=== PATIENT | female | born 1995 | race Caucasian/White ===

== ENCOUNTER 2019-04-26 14:58 | Emergency (ER) | payer MEDICAID ==
[~2019-04-26] VITALS: Ht 160 cm; Wt 58.2 kg
[~2019-04-26 14:58] MED LIST: ALBU8.5H8 INH; IBUP-1222 PO
--- NOTE | 2019-04-26 15:27 | NUR ---
TO ROOM FROM LOBBY. NAD.
[2019-04-26] MEDS ORDERED: ONDANSETRON ODT 4 MG ONE (15:53)
[2019-04-26] MEDS ORDERED: ONDANSETRON ODT 4 MG PO ONE (16:00)
--- NOTE | 2019-04-26 16:18 | NUR ---
Patient drank 200mL sprite without vomiting, reports improvement in symptoms.
--- NOTE | 2019-04-26 17:18 | NUR ---
Lacer splint applied to right wrist, patient tolerated well. Discharge instructions discussed with patient including when to return to emergency department, patient verbalizes understanding. Prescription provided with instruction for use, patient verbalizes understanding.
[2019-04-26 17:20] VITALS: BP 109/69
== END 2019-04-26 17:22 | disposition home or self-care (01) ==
LOC: ED 16:15
DX: R11.2 Nausea with vomiting, unspecified (principal); M25.531 Pain in right wrist
CPT/HCPCS: 29260; 73110; 99283; Q0162

== ENCOUNTER 2020-01-07 17:49 | Outpatient (CLI) | payer MEDICAID ==
[~2020-01-07] VITALS: Ht 160 cm; Wt 69.0 kg
[2020-01-07 18:45] LABS: FERNING TEST FERNING NOT PRESENT (NEGATIVE)
== END 2020-01-07 19:15 | disposition home or self-care (01) ==
LOC: LDOP 17:49
PROVIDERS: ATTEND Obstetrics & Gynecology
DX: O26.893 Other specified pregnancy related conditions, third trimester (principal); R10.9 Unspecified abdominal pain; Z3A.36 36 weeks gestation of pregnancy
CPT/HCPCS: 59025; 84112; 89060; 99211; G0463; Q0114

== ENCOUNTER 2020-01-10 07:58 | Inpatient (IN) | payer MEDICAID ==
[~2020-01-10] VITALS: Ht 160 cm; Wt 68.1 kg
[2020-01-10] MEDS ORDERED: OXYTOCIN 30U/ 0.9% NaCL 500ML 500 ML IV PRN (08:15)
[2020-01-10] MEDS ORDERED: D5%-LACTATED RINGERS 1,000 ML IV SCH (08:15)
[2020-01-10] MEDS ORDERED: OXYTOCIN 30U/ 0.9% NaCL 500ML 500 ML IV ONE (08:15)
[2020-01-10] MEDS: LACTATED RINGERS 1,000 ML IV SCH ×2 (08:28→17:27)
[2020-01-10] MEDS ORDERED: TERBUTALINE 1 MG/ML, 1ML IVPush PRN (08:30)
[2020-01-10] MEDS ORDERED: METOCLOPRAMIDE 5 MG/ML, 2ML IVPush PRN (08:30)
[2020-01-10] MEDS ORDERED: FENTANYL PF 100 MCG/2ML IVPush PRN (08:30)
[2020-01-10] MEDS ORDERED: TERBUTALINE 1 MG/ML, 1ML SQ PRN (08:30)
[2020-01-10] MEDS ORDERED: MISOPROSTOL 25 MCG TABLET VG PRN (08:30)
[2020-01-10] MEDS ORDERED: SODIUM CITRATE/CITRIC ACID 30 ML UDC PO PRN (08:30)
[2020-01-10] MEDS ORDERED: FENTANYL PF 100 MCG/2ML IV PRN (08:30)
[2020-01-10] MEDS ORDERED: NEWBORN KIT ONE (08:37)
[2020-01-10] MEDS ORDERED: OXYTOCIN 30U/ 0.9% NaCL 500ML 500 ML ONE ×2 (08:38→19:50)
[2020-01-10] MEDS ORDERED: MISOPROSTOL 25 MCG TABLET ONE ×3 (08:38→12:40)
[2020-01-10 08:50] LABS: BASOPHILS # (AUTO) 0.02 x10^3/uL (0-0.1); BASOPHILS % (AUTO) 0 % (0-1); EOSINOPHILS % (AUTO) 2 % (1-7); LYMPHOCYTES # (AUTO) 1.19 x10^3/uL (1-3.4); LYMPHOCYTES % (AUTO) 17 % (22-44); MD NO; MEAN CORPUSCULAR HEMOGLOBIN 26.5 pg (27.0-34.8); MEAN CORPUSCULAR HGB CONC 32.5 g/dL (32.4-35.8); MEAN CORPUSCULAR VOLUME 81.6 fL (80-100); MEAN PLATELET VOLUME 8.2 fL (7.4-10.4); MONOCYTES # (AUTO) 0.47 x10^3/uL (0.2-0.8); MONOCYTES % (AUTO) 7 % (2-9); NEUTROPHILS # (AUTO) 5.36 x10^3/uL (1.8-6.8); NEUTROPHILS % (AUTO) 75 % (42-75); PLATELET COUNT 201 x10^3/uL (130-400); RED BLOOD COUNT 4.32 x10^6/uL (3.82-5.3); RED CELL DISTRIBUTION WIDTH 13.5 % (9.6-15.2)
[2020-01-10 08:55] VITALS: BP 107/62
[2020-01-10] MEDS ORDERED: FLU VACC QS2019-20 36MOS UP/PF 0.5 ML IM-VACC ONE (09:30)
[2020-01-10] MEDS ORDERED: FENTANYL/BUPIV./NS/PF 250 ML EPIDCONT SCH (13:42)
[2020-01-10] MEDS ORDERED: FENTANYL PF 500 MCG, BUPIVACAINE/PF 0.5%, 30ML 62.5 ML in SODIUM CHLORIDE 0.9% 177.5 ML EPIDCONT SCH (14:00)
[2020-01-10] MEDS ORDERED: LACTATED RINGERS 1,000 ML IVBOLUS PRN (14:00)
[2020-01-10] MEDS ORDERED: FENTANYL PF 100 MCG/2ML ONE (17:22)
[2020-01-10] MEDS ORDERED: BUPIVACAINE 0.25% ONE (17:22)
[2020-01-10] MEDS ORDERED: LIDOCAINE/PF 1.5%-EPI 1:200K, 30ML ONE (17:25)
[2020-01-10] MEDS: OXYTOCIN 30U/ 0.9% NaCL 500ML 500 ML IV SCH ×5 (19:27→23:45)
[2020-01-10] MEDS ORDERED: CARBOPROST TROMETHAMINE 250 MCG/ML, 1ML IM PRN (19:30)
[2020-01-10] MEDS ORDERED: ACETAMINOPHEN 325 MG TABLET PO PRN (19:30)
[2020-01-10] MEDS ORDERED: MAGNESIUM HYDROXIDE 8%, 30ML UDC PO PRN (19:30)
[2020-01-10] MEDS ORDERED: OXYTOCIN 10 UNITS/ML, 1ML IM PRN (19:30)
[2020-01-10] MEDS ORDERED: MEASLES,MUMPS&RUBELLA VACC/PF 0.5 ML SQ-VACC PRN (19:30)
[2020-01-10] MEDS ORDERED: METHYLERGONOVINE 0.2 MG/ML IM PRN (19:30)
[2020-01-10] MEDS ORDERED: ONDANSETRON 2MG/ML, 2ML IV PRN (19:30)
[2020-01-10] MEDS ORDERED: SIMETHICONE 80 MG CHEW TAB PO PRN (19:30)
[2020-01-10] MEDS ORDERED: OXYcodone IR 5MG TABLET PO PRN (19:30)
[2020-01-10] MEDS ORDERED: IBUPROFEN 600 MG TABLET ONE (20:25)
[2020-01-10] MEDS: IBUPROFEN 600 MG TABLET PO PRN (20:28)
[2020-01-10 21:30] VITALS: BP 113/70
[2020-01-11] MEDS: OXYTOCIN 30U/ 0.9% NaCL 500ML 500 ML IV SCH ×9 (01:11→11:13)
[2020-01-11 01:30] VITALS: BP 105/69
[2020-01-11] MEDS: OXYcodone/APAP 5/325MG TABLET PO PRN ×2 (03:17→12:12)
[2020-01-11] MEDS: IBUPROFEN 600 MG TABLET PO PRN ×3 (03:17→16:01)
[2020-01-11 03:39] LABS: BASOPHILS # (AUTO) 0.03 x10^3/uL (0-0.1); BASOPHILS % (AUTO) 0 % (0-1); EOSINOPHILS # (AUTO) 0.16 x10^3/uL (0-0.4); EOSINOPHILS % (AUTO) 2 % (1-7); LYMPHOCYTES # (AUTO) 1.79 x10^3/uL (1-3.4); LYMPHOCYTES % (AUTO) 17 % (22-44); MD NO; MEAN CORPUSCULAR HEMOGLOBIN 26.8 pg (27.0-34.8); MEAN CORPUSCULAR HGB CONC 32.7 g/dL (32.4-35.8); MEAN CORPUSCULAR VOLUME 81.8 fL (80-100); MEAN PLATELET VOLUME 8.8 fL (7.4-10.4); MONOCYTES # (AUTO) 0.81 x10^3/uL (0.2-0.8); MONOCYTES % (AUTO) 8 % (2-9); NEUTROPHILS # (AUTO) 7.82 x10^3/uL (1.8-6.8); NEUTROPHILS % (AUTO) 74 % (42-75); PLATELET COUNT 201 x10^3/uL (130-400); RED BLOOD COUNT 4.09 x10^6/uL (3.82-5.3); RED CELL DISTRIBUTION WIDTH 13.1 % (9.6-15.2)
[2020-01-11 05:00] VITALS: BP 103/68
[2020-01-11 07:07] VITALS: BP 98/62
[2020-01-11] MEDS: DOCUSATE 100 MG CAPSULE PO PRN (08:55)
[2020-01-11] MEDS: PRENATAL VIT/IRON/FA 1 EACH TABLET PO SCH (08:55)
[2020-01-11 12:12] VITALS: BP 94/55
[2020-01-11] MEDS ORDERED: FLU VACC QS2019-20 36MOS UP/PF 0.5 ML IM-VACC ONE (14:00)
[2020-01-11 16:00] VITALS: BP 100/58
[2020-01-11 19:01] VITALS: BP 99/64
[2020-01-12 08:00] VITALS: BP 97/56
[2020-01-12] MEDS: DOCUSATE 100 MG CAPSULE PO PRN (08:01)
[2020-01-12] MEDS: IBUPROFEN 600 MG TABLET PO PRN ×2 (08:01→15:42)
[2020-01-12] MEDS: PRENATAL VIT/IRON/FA 1 EACH TABLET PO SCH (08:01)
[2020-01-12] MEDS: OXYcodone/APAP 5/325MG TABLET PO PRN ×2 (08:05→15:44)
[2020-01-12] MEDS ORDERED: IBUP-1222 PO (14:51)
[2020-01-12] MEDS ORDERED: OXYC-302 PO (14:52)
== END 2020-01-12 20:00 | disposition home or self-care (01) | DRG 807 ==
LOC: LDIP 07:58 → 2NW 21:33
PROVIDERS: ADMIT Obstetrics & Gynecology; ATTEND Obstetrics & Gynecology
PROC: 10E0XZZ Delivery of Products of Conception, External Approach (ICD-10-PCS; principal; 2020-01-10)
PROC: 0W8NXZZ Division of Female Perineum, External Approach (ICD-10-PCS; 2020-01-10)
PROC: 3E0R3BZ Introduction of Anesthetic Agent into Spinal Canal, Percutaneous Approach (ICD-10-PCS; 2020-01-10)
PROC: 00HU33Z Insertion of Infusion Device into Spinal Canal, Percutaneous Approach (ICD-10-PCS; 2020-01-10)
DX: O41.03X0 Oligohydramnios, third trimester, not applicable or unspecified (principal); Z37.0 Single live birth; Z3A.37 37 weeks gestation of pregnancy
CPT/HCPCS: 36415; J3490; S0020; 85025; 86592; 86850; 86900; 90686; G0378; J3010; J2590; J7050; J7120

== ENCOUNTER 2021-06-10 13:20 | Outpatient (CLI) | payer MEDICAID ==
[~2021-06-10] VITALS: Ht 160 cm; Wt 73.6 kg
[~2021-06-10 13:20] MED LIST changes: +OXYC1TAB12 PO
[2021-06-10 14:15] LABS: BASOPHILS % (AUTO) 0 % (0-1); EOSINOPHILS % (AUTO) 2 % (1-7); LYMPHOCYTES % (AUTO) 19 % (22-44); MEAN CORPUSCULAR HEMOGLOBIN 24.2 pg (27.0-34.8); MEAN CORPUSCULAR HGB CONC 33.5 g/dL (32.4-35.8); MONOCYTES % (AUTO) 8 % (2-9); NEUTROPHILS % (AUTO) 71 % (42-75); PLATELET COUNT 225 x10^3/uL (130-400); RED BLOOD COUNT 4.06 x10^6/uL (3.82-5.3); RED CELL DISTRIBUTION WIDTH 16.2 % (9.6-15.2)
[2021-06-10 14:16] VITALS: BP 117/67
[2021-06-18] MEDS ORDERED: OXYC1TAB12 PO (13:51)
== END 2021-06-10 14:42 | disposition home or self-care (01) ==
LOC: LDOP 13:20
PROVIDERS: ATTEND Obstetrics & Gynecology
DX: O26.893 Other specified pregnancy related conditions, third trimester (principal); R10.9 Unspecified abdominal pain; Z3A.38 38 weeks gestation of pregnancy
CPT/HCPCS: 36415; 59025; 84112; 85025; 86592; 86701; 86702; 86762; 86850; 86900; 87340; 87535; 87806; G0475

== ENCOUNTER 2021-06-16 02:43 | Inpatient (IN) | payer MEDICAID ==
[~2021-06-16] VITALS: Ht 160 cm; Wt 73.6 kg
[~2021-06-16 02:43] MED LIST changes: -OXYC1TAB12 PO; +OXYC1TAB14 PO
[2021-06-17 13:00] VITALS: BP 111/72
[2021-06-17] MEDS: LACTATED RINGERS 1,000 ML IV SCH ×3 (13:25→20:00)
[2021-06-17] MEDS ORDERED: OXYTOCIN 30U/ 0.9% NaCL 500ML 500 ML ONE (13:49)
[2021-06-17] MEDS ORDERED: LIDOCAINE 1%, 20ML ONE (13:49)
[2021-06-17] MEDS ORDERED: MISOPROSTOL 200 MCG TABLET ONE (13:49)
[2021-06-17] MEDS ORDERED: NEWBORN KIT ONE (13:49)
[2021-06-17] MEDS ORDERED: TERBUTALINE 1 MG/ML, 1ML SQ PRN (14:00)
[2021-06-17] MEDS ORDERED: FENTANYL PF 100 MCG/2ML IV PRN (14:00)
[2021-06-17] MEDS ORDERED: OXYTOCIN 30U/ 0.9% NaCL 500ML 500 ML IV PRN (14:00)
[2021-06-17] MEDS ORDERED: FENTANYL PF 100 MCG/2ML IVPush PRN (14:00)
[2021-06-17] MEDS ORDERED: OXYTOCIN 30U/ 0.9% NaCL 500ML 500 ML IV ONE (14:00)
[2021-06-17] MEDS ORDERED: CALCIUM CARBONATE 500 MG TAB.CHEW PO PRN ×2 (14:00→21:00)
[2021-06-17] MEDS ORDERED: ONDANSETRON 2MG/ML, 2ML IVPush PRN (14:00)
[2021-06-17] MEDS ORDERED: D5%-LACTATED RINGERS 1,000 ML IV SCH (14:00)
[2021-06-17] MEDS ORDERED: TERBUTALINE 1 MG/ML, 1ML IVPush PRN (14:00)
[2021-06-17 14:05] LABS: BASOPHILS % (AUTO) 0 % (0-1); EOSINOPHILS % (AUTO) 2 % (1-7); LYMPHOCYTES % (AUTO) 19 % (22-44); MEAN CORPUSCULAR HEMOGLOBIN 23.4 pg (27.0-34.8); MEAN CORPUSCULAR HGB CONC 32.7 g/dL (32.4-35.8); MEAN PLATELET VOLUME 8.2 fL (7.4-10.4); MONOCYTES % (AUTO) 6 % (2-9); NEUTROPHILS % (AUTO) 73 % (42-75); PLATELET COUNT 212 x10^3/uL (130-400); RED BLOOD COUNT 4.37 x10^6/uL (3.82-5.3); RED CELL DISTRIBUTION WIDTH 16.6 % (9.6-15.2)
[2021-06-17] MEDS ORDERED: BUPIVACAINE 0.25% ONE (19:17)
[2021-06-17] MEDS ORDERED: FENTANYL/BUPIV./NS/PF 250 ML EPIDCONT ONE (19:17)
[2021-06-17] MEDS ORDERED: FENTANYL/BUPIV./NS/PF 250 ML EPIDCONT SCH (20:00)
[2021-06-17] MEDS ORDERED: EPHEDRINE 50 MG/ML, 1ML IVPush PRN (20:00)
[2021-06-17] MEDS ORDERED: LACTATED RINGERS 1,000 ML IVBOLUS PRN (20:00)
[2021-06-17] MEDS ORDERED: MISOPROSTOL 200 MCG TABLET PR PRN (21:00)
[2021-06-17] MEDS ORDERED: OXYTOCIN 30U/ 0.9% NaCL 500ML 500 ML IV SCH (21:00)
[2021-06-17] MEDS ORDERED: METHYLERGONOVINE 0.2 MG/ML IM PRN (21:00)
[2021-06-17] MEDS ORDERED: OXYcodone IR 5MG TABLET PO PRN (21:00)
[2021-06-17] MEDS ORDERED: OXYTOCIN 10 UNITS/ML, 1ML IM PRN (21:00)
[2021-06-17] MEDS ORDERED: ONDANSETRON 2MG/ML, 2ML IV PRN (21:00)
[2021-06-17] MEDS ORDERED: IBUPROFEN 800 MG TABLET PO PRN (21:00)
[2021-06-17] MEDS ORDERED: TRANEXAMIC ACID 100 MG/ML, 10ML IV ONE (21:00)
[2021-06-17] MEDS ORDERED: ACETAMINOPHEN 325 MG TABLET PO PRN ×2 (21:00)
[2021-06-17] MEDS ORDERED: MAGNESIUM HYDROXIDE 8%, 30ML UDC PO PRN (21:00)
[2021-06-17] MEDS ORDERED: SIMETHICONE 80 MG CHEW TAB PO PRN (21:00)
[2021-06-17 22:50] VITALS: BP 115/73
[2021-06-17] MEDS: DOCUSATE 100 MG CAPSULE PO PRN (23:05)
[2021-06-18] MEDS: OXYcodone/APAP 5/325MG TABLET PO PRN ×3 (00:18→14:05)
[2021-06-18 03:00] VITALS: BP 103/58
[2021-06-18] MEDS: LACTATED RINGERS 1,000 ML IV SCH (04:00)
[2021-06-18 04:34] LABS: BASOPHILS % (AUTO) 1 % (0-1); EOSINOPHILS % (AUTO) 1 % (1-7); LYMPHOCYTES % (AUTO) 15 % (22-44); MEAN CORPUSCULAR HGB CONC 32.3 g/dL (32.4-35.8); MEAN PLATELET VOLUME 8.1 fL (7.4-10.4); MONOCYTES % (AUTO) 7 % (2-9); NEUTROPHILS % (AUTO) 77 % (42-75); PLATELET COUNT 190 x10^3/uL (130-400); RED BLOOD COUNT 4.03 x10^6/uL (3.82-5.3); RED CELL DISTRIBUTION WIDTH 16.4 % (9.6-15.2)
[2021-06-18 08:55] VITALS: BP 105/67
[2021-06-18] MEDS ORDERED: PRENATAL VIT/IRON/FA 1 EACH TABLET PO SCH (09:00)
[2021-06-18] MEDS: DOCUSATE 100 MG CAPSULE PO PRN (10:09)
[2021-06-18] MEDS ORDERED: IBUP-1222 PO (13:51)
[2021-06-18] MEDS ORDERED: DOCU-131 PO (13:51)
[2021-06-18] MEDS ORDERED: OXYC1TAB14 PO (13:51)
[2021-06-18] MEDS ORDERED: FERR325T5 PO (13:51)
[2021-06-18 14:11] VITALS: BP 102/66
[2021-06-18 19:23] VITALS: BP 95/56
== END 2021-06-18 22:10 | disposition home or self-care (01) | DRG 807 ==
LOC: LDIP 06-17 13:24 → 2NW 06-17 22:33
PROVIDERS: ADMIT Obstetrics & Gynecology; ATTEND Obstetrics & Gynecology
PROC: 10E0XZZ Delivery of Products of Conception, External Approach (ICD-10-PCS; principal; 2021-06-17)
PROC: 10907ZC Drainage of Amniotic Fluid, Therapeutic from Products of Conception, Via Natural or Artificial Opening (ICD-10-PCS; 2021-06-17)
PROC: 3E0R3BZ Introduction of Anesthetic Agent into Spinal Canal, Percutaneous Approach (ICD-10-PCS; 2021-06-17)
PROC: 00HU33Z Insertion of Infusion Device into Spinal Canal, Percutaneous Approach (ICD-10-PCS; 2021-06-17)
DX: O80 Encounter for full-term uncomplicated delivery (principal); Z37.0 Single live birth; Z3A.39 39 weeks gestation of pregnancy; Z20.822 Contact with and (suspected) exposure to COVID-19
CPT/HCPCS: 36415; 82947; 85025; 86592; 86850; 86900; 87635; G0378; J2590; J3010; J7120

== ENCOUNTER 2021-06-24 22:41 | Emergency (ER) | payer MEDICAID ==
[~2021-06-24] VITALS: Ht 160 cm; Wt 68.0 kg
[~2021-06-24 22:41] MED LIST changes: +DOCU-131 PO; +FERR325T5 PO; +OXYC1TAB12 PO; -OXYC1TAB14 PO
[2021-06-24] MEDS ORDERED: ONDANSETRON 2MG/ML, 2ML ONE (23:11)
[2021-06-24] MEDS ORDERED: ACETAMINOPHEN 500 MG TABLET ONE (23:11)
[2021-06-24] MEDS ORDERED: KETOROLAC 30 MG/1 ML ONE (23:11)
[2021-06-24] MEDS ORDERED: SODIUM CHLORIDE 0.9% 1,000ML IVBOLUS ONE (23:30)
[2021-06-24] MEDS ORDERED: SODIUM CHLORIDE FLUSH 10ML SYR IVF ONE (23:30)
[2021-06-24] MEDS ORDERED: KETOROLAC 30 MG/1 ML IVPush ONE (23:30)
[2021-06-24] MEDS ORDERED: ONDANSETRON 2MG/ML, 2ML IVPush ONE (23:30)
[2021-06-24] MEDS ORDERED: ACETAMINOPHEN 500 MG TABLET PO ONE (23:30)
[2021-06-24 23:39] LABS: MICROSCOPIC AUTO
[2021-06-24 23:41] LABS: BASOPHILS % (AUTO) 0 % (0-1); EOSINOPHILS % (AUTO) 1 % (1-7); LYMPHOCYTES % (AUTO) 6 % (22-44); MEAN CORPUSCULAR HEMOGLOBIN 22.4 pg (27.0-34.8); MEAN CORPUSCULAR HGB CONC 31.5 g/dL (32.4-35.8); MEAN PLATELET VOLUME 7.3 fL (7.4-10.4); MONOCYTES % (AUTO) 3 % (2-9); NEUTROPHILS % (AUTO) 90 % (42-75); PLATELET COUNT 250 x10^3/uL (130-400); RED BLOOD COUNT 5.19 x10^6/uL (3.82-5.3)
[2021-06-24 23:53] LABS: ALBUMIN 2.8 g/dL (3.4-5.0); ANION GAP 9 mmol/L (5-15); CALCIUM 8.2 mg/dL (8.5-10.1); CHLORIDE 107 mmol/L (98-107)
[2021-06-24 23:57] LABS: ALANINE AMINOTRANSFERASE 20 U/L (12-78); ALKALINE PHOSPHATASE 130 U/L (45-117); BILIRUBIN,TOTAL 0.4 mg/dL (0.2-1.0); CREATININE 0.58 mg/dL (0.55-1.02)
[2021-06-25 00:41] VITALS: BP 107/62
[2021-06-25] MEDS ORDERED: CEFTRIAXONE 1,000 MG in DEXTROSE 5% 50 ML IVPB ONE (01:00)
== END 2021-06-25 01:52 | disposition home or self-care (01) ==
LOC: ED 23:59
DX: N10 Acute pyelonephritis (principal); R50.9 Fever, unspecified; R00.0 Tachycardia, unspecified; J45.909 Unspecified asthma, uncomplicated; Z90.89 Acquired absence of other organs; Z87.891 Personal history of nicotine dependence
CPT/HCPCS: 36415; 71045; 80053; 81001; 83605; 84145; 85025; 87040; 87077; 87086; 87186; 93005; 96361; 96365; 96375; 99285; J0696; J1885; J2405; J7030